=== PATIENT | male | born 1980 | race Caucasian/White ===

== ENCOUNTER 2016-09-06 08:14 | Emergency (ER) | payer OTHER ==
[2016-09-06] MEDS ORDERED: Sodium Chloride 0.9% 1,000 ML IV ONE (08:44)
[2016-09-06] MEDS ORDERED: Sodium Chloride 0.9% 1,000 ML ONE (09:04)
[2016-09-06 09:15] LABS: BASO % 0.4 % (0.0-2.0); EOS # 0.1 K/uL (0.0-0.7); EOS % 1.2 % (0.0-4.0); HEMATOCRIT 40.9 % (35.0-51.0); LYMPH # 1.8 K/uL (1.0-4.3); LYMPH % 23.8 % (20.0-40.0); MEAN CELL VOLUME 85.2 fL (80.0-94.0); MEAN CORPUSCULAR HEMOGLOBIN 28.2 pg (27.0-31.0); MEAN CORPUSCULAR HGB CONC 33.1 g/dL (33.0-37.0); MEAN PLATELET VOLUME 8.8 fL (7.2-11.7); MONO # 1.1 K/uL (0.0-0.8); MONO % 14.7 % (0.0-10.0); RED CELL DISTRIBUTION WIDTH 12.9 % (11.5-14.5); WHITE BLOOD COUNT 7.7 K/uL (4.8-10.8)
[2016-09-06 09:25] LABS: CHLORIDE 100 mmol/L (98-107); POTASSIUM 3.6 mmol/L (3.6-5.2); SODIUM 137 mmol/L (132-148)
[2016-09-06 09:28] LABS: ALB/GLOB RATIO 1.2 (1.0-2.1); ALKALINE PHOSPHATASE 73 U/L (38-126); ALT/SGPT 47 U/L (21-72); AST/SGOT 38 U/L (17-59); BILIRUBIN,TOTAL 0.7 mg/dL (0.2-1.3); BLOOD UREA NITROGEN 8 mg/dL (9-20); CARBON DIOXIDE 24 mmol/L (22-30); GFR AFRICAN-AMERICAN > 60; GLUCOSE,RANDOM 104 mg/dL (75-110); TOTAL PROTEIN 7.6 g/dL (6.3-8.3)
[2016-09-06 09:29] LABS: CALCIUM 8.2 mg/dl (8.6-10.4)
--- NOTE | 2016-09-06 09:41 | RAD ---
HISTORY: cough COMPARISON: No prior study available for comparison. TECHNIQUE: Chest PA and lateral FINDINGS: LUNGS: There is a hazy opacity seen in the lateral aspect right middle lobe consistent with atelectasis and or infiltrate. There is also a vague opacity in the left suprahilar region that could represent some mild atelectasis however developing infiltrate in this location must be excluded therefore followup radiographs PLEURA: No significant pleural effusion identified. No pneumothorax apparent. CARDIOVASCULAR: Normal. OSSEOUS STRUCTURES: No significant abnormalities. VISUALIZED UPPER ABDOMEN: Normal. OTHER FINDINGS: None. IMPRESSION: Patchy infiltrates seen in the lateral segment right middle
[2016-09-06 09:59] VITALS: BP 110/65; PULSE 77; RESP 18; TEMP 98.2; O2SAT 96
--- NOTE | 2016-09-06 10:35 | C.PDOC ---
History Of Present Illness 36 y/o male presents to the ED complaining of cough, body aches, and subjective fever x 1 week. Patient also reports abdominal pain with 1-2 episodes of vomiting and diarrhea. He states that he saw his PMD who gave him medication for symptomatic relief but symptoms persist. Patient denies throat pain, chest pain, shortness of breath, or other complaints. Time Seen by Provider: 09/06/16 08:43 Chief Complaint (Nursing): Flu-like Symptoms Past Medical History Vital Signs: Last Vital Signs Temp 98.2 F 09/06/16 09:40 Pulse 77 09/06/16 09:40 Resp 18 09/06/16 09:40 BP 110/65 09/06/16 09:40 Pulse Ox 96 09/06/16 10:46 Family History: States: Unknown Family Hx - Social History Hx Alcohol Use: No Hx Substance Use: No - Immunization History Hx Influenza Vaccination: No Review Of Systems Except As Marked, All Systems Reviewed And Found Negative. Constitutional: Positive for: Fever (subjective), Other (body aches) ENT: Negative for: Throat Pain Cardiovascular: Negative for: Chest Pain Respiratory: Positive for: Cough. Negative for: Shortness of Breath Gastrointestinal: Positive for: Vomiting, Abdominal Pain, Diarrhea Physical Exam - Physical Exam Appears: Non-toxic, No Acute Distress Skin: Normal Color, Warm, Dry Head: Atraumatic, Normacephalic Eye(s): bilateral: Normal Inspection, PERRL Ear(s): Bilateral: Normal Nose: Normal Oral Mucosa: Moist Throat: Normal, No Erythema, No Exudate Neck: Normal ROM, Supple Chest: Symmetrical Cardiovascular: Rhythm Regular Respiratory: No Rales, Rhonchi (mild rhonchi left lung), No Wheezing, Other ( good air entry bilaterally) Gastrointestinal/Abdominal: Normal Exam, Soft, No Tenderness, No Guarding, No Rebound Back: Normal Inspection, No CVA Tenderness Extremity: Normal ROM, No Swelling Neurological/Psych: Oriented x3, Normal Speech, Normal Cognition ED Course And Treatment - Laboratory Results Result Diagrams: 09/06/16 09:06 09/06/16 09:06 O2 Sat by Pulse Oximetry: 96 (ra) Pulse Ox Interpretation: Normal - Other Rad Chest X-Ray X-Ray: Viewed By Me, Read By Radiologist (Dr. Wilson, [facility] EDGE) Interpretation: IMPRESSION: Patchy infiltrates seen in the lateral segment right middle Medical Decision Making Medical Decision Making: Plan: * Labs * CXR * Pepcid IVP, Zofran IVP, IV FLuids Patient reports improvement of symptoms. Patient is resting comfortably, afebrile at this time, abdomen remains soft, and patient is tolerating PO. Discharged home with self-care and follow-up instructions. Disposition - Disposition Referrals: [facility], [Non-Staff] - Disposition: HOME/ ROUTINE Disposition Time: 09:50 Condition: STABLE Additional Instructions: Thank you for letting us take care of you today. Your provider was Dr. Clemens. You were treated for cough/possible pneumonia. The emergency medical care you received today was directed at your acute symptoms. If you were prescribed any medication, please fill it and take as directed. It may take several days for your symptoms to resolve. Return to the Emergency Department if your symptoms worsen, do not improve, or if you have any other problems. Please contact your doctor or call one of the physicians/clinics you have been referred to that are listed on the Patient Visit Information form that is included in your discharge packet. Bring any paperwork you were given at discharge with you along with any medications you are taking to your follow up visit. Our treatment cannot replace ongoing medical care by a primary care provider (PCP) outside of the emergency department. Thank you for allowing the [facility] team to be part of your care today. Follow up with your doctor in 2 days to be re-evaluated. Prescriptions: levoFLOXacin [Levaquin] 750 mg PO DAILY #5 tab Instructions: Bacterial Pneumonia (ED) - Clinical Impression Clinical Impression: Pneumonia - Scribe Statement The provider has reviewed the documentation as recorded by the Scribe (Aishwarya Palm) Provider Attestation: All medical record entries made by the Scribe were at my direction and personally dictated by me. I have reviewed the chart and agree that the record accurately reflects my personal performance of the history, physical exam, medical decision making, and the department course for this patient. I have also personally directed, reviewed, and agree with the discharge instructions and disposition.
== END 2016-09-06 09:59 | disposition home or self-care (01) ==
LOC: C.ER 08:14
DX: J18.9 Pneumonia, unspecified organism (principal)
CPT/HCPCS: 71020; 80053; 85025; 87804; 96361; 96374; 96375; 99285; J2405; J7040